=== PATIENT | female | born 1975 | race Hispanic/Latino ===

== ENCOUNTER 2025-08-02 15:33 | Emergency (ER) | payer BC ==
[~2025-08-02] VITALS: Ht 165.1 cm; Wt 66.7 kg
[2025-08-02 16:00] LABS: APPEARANCE,URINE CLOUDY (CLEAR); GLUCOSE, URINE (UA) NEGATIVE (NEGATIVE); LEUKOCYTE ESTERASE ,URINE 75 Leu/uL (NEGATIVE); NITRATE,URINE NEGATIVE (NEGATIVE); OCCULT BLOOD,URINE MODERATE (NEGATIVE)
[2025-08-02 16:01] LABS: HCG,QUALITATIVE URINE NEGATIVE (NEGATIVE)
[2025-08-02 16:05] LABS: ADD UA MICROSCOPIC YES
[2025-08-02 16:07] LABS: SQUAMOUS EPITHELIAL CELL,UR MOD /HPF (0-2)
[2025-08-02 16:47] LABS: IMMATURE GRANULOCYTE ABSOLUTE 0.02 K/uL (0-1); NUCLEATED RED BLOOD CELLS 0.0 % (0.0-0.19); PLATELET COUNT (AUTO) 263 K/uL (130-400); RED BLOOD CELL COUNT(AUTO) 4.28 MIL/uL (4.00-5.50); RED CELL DISTRIBUTION WIDTH 13.2 % (11.0-15.5); WHITE BLOOD COUNT (AUTO) 6.0 K/uL (4.8-10.8)
[2025-08-02 16:55] LABS: CREATININE 0.7 mg/dL (0.5-1.0); GLOMERULAR FILTR. RATE CALC 106.0 mL/min (>90); GLUCOSE,RANDOM 84.0 mg/dL (70-105); SODIUM SERUM 140.0 mmol/L (136-145); UREA NITROGEN, BLOOD 11.0 mg/dL (7-18)
--- NOTE | 2025-08-02 17:32 | NUR ---
CALLED [facility] TO SET UP TRANSPORT FOR PT.
--- NOTE | 2025-08-02 18:21 | ERN ---
General Chief Complaint: Pelvic Pain Stated Complaint: PELVIC PAIN Time Seen by MD: 15:43 Source: patient History of Present Illness Initial Comments 49-year-old female coming in complaining of pelvic pressure pelvic pain. Patient states that she was evaluated at an urgent care was diagnosed with a an ovarian cyst and advised to follow up with her silk trimmer Dr. Morales. Patient states that she was not able to follow up in his here for further evaluation in his complaining of pain again. She states that the pain has not improved. Allergies: Coded Allergies: No Known Allergies (Unverified Allergy, Unknown, 08/02/25) Past Medical History Past Medical History: No Pertinent History Medical History Other: RT OVARIAN CYST Past Surgical History: None ROS Dictation CONSTITUTIONAL: No chills, no fever, no weakness, no diaphoresis, no malaise. HEAD/FACE: No signs of trauma. EENT: No eye pain, no blurred vision, no tearing, no double vision, no ear pain, no ear discharge, no nose pain, no nasal congestion, no throat pain, no throat swelling, no mouth pain. RESPIRATORY: No cough, no orthopnea, no SOB, no stridor, no wheezing. CARDIOVASCULAR: No chest pain, no edema, no palpitations, no syncope. GASTROINTESTINAL/ABDOMINAL: abdominal pain, no constipation, no diarrhea, no nausea, no vomiting. GENITOURINARY: No abnormal discharge, no dysuria, no frequent urination, no hematuria. No complaints of pain in the genitals. MUSCULOSKELETAL: No back pain, no gout, no joint pain, no joint swelling, no muscle pain, no muscle stiffness, no neck pain. INTEGUMENTARY: No change in color, no change in hair/nails, no dryness, no lesion, no lumps, no rash. NEUROLOGICAL/PSYCH: No anxiety, not depressed, no emotional problem, no headache, no numbness, no pre-existing deficit, no history of seizures, no tremors, no weakness. HEMATOLOGIC/LYMPHATIC: Not anemic, no history of blood clots, no apparent bleeding, no bruising, glands not swollen. All Systems Negative, Except as Noted. Physical Exam Physical Exam Dictation VITAL SIGNS: Reviewed. GENERAL APPEARANCE: Alert, oriented x3, no acute distress, obese. HEAD AND FACE: Non-traumatic. EYES: PERRL, pink conjunctivas, eyelid no trauma, anterior chamber clear. EARS: Pinnas intact and no signs of trauma or erythema. Ear canals clear and no discharge. TMs no erythema. NOSE: No discharge, no bleeding. OROPHARYNX: Mouth normal, teeth no caries, tongue pink. Pharynx clear, no erythema. Tonsils no exudates, no abscesses noted. Mucous membrane moist. NECK: Supple, non-tender, no thyromegaly, no masses, no JVD, no bruits. BREAST: Deferred. CHEST: No tenderness, no crepitus, no paradoxical movement, no retractions. LUNGS: Clear, well-ventilated, symmetric, no rales, no wheezing, no rhonchi, no stridor, good breath sounds bilaterally. HEART: Regular rate, regular rhythm, no murmur, no gallops. VASCULAR: No peripheral edema. ABDOMEN: Soft, positive bowel sounds, nondistended, no guarding, suprapubic tender, no rebound, no masses no hepatomegaly, no splenomegaly, no Davalos's sign, no hernias. RECTAL: Deferred. GENITAL: Deferred. NEUROLOGICAL: Normal speech, gross motor function intact, gross sensory function intact. MUSCULOSKELETAL: Neck nontender, full range of motion, back nontender, full range of motion. EXTREMITIES: Nontender, full range of motion. SKIN: Color pink, dry, no turgor, no rash, no lacerations, no abrasions, no contusions. LYMPHATICS: Deferred. Results Laboratory and Microbiology Lab and Micro Result Laboratory Tests Test 08/02/25 15:50 08/02/25 16:39 Urine Color LIGHT-YELLOW (YELLOW) Urine Appearance CLOUDY (CLEAR) H Urine pH 5.5 (5.0-8.0) Urine Specific [place] 1.014 (1.001-1.031) Urine Protein 30 mg/dL (NEGATIVE) H Urine Glucose (UA) NEGATIVE mg/dL (NEGATIVE) Urine Ketones NEGATIVE mg/dL (NEGATIVE) Urine Occult Blood MODERATE (NEGATIVE) H Urine Nitrate NEGATIVE (NEGATIVE) Urine Bilirubin NEGATIVE mg/dL (NEGATIVE) Urine Urobilinogen 0.2 mg/dL (0.2-1.0) Urine Leukocyte Esterase 75 [place]/uL (NEGATIVE) H Urine RBC 11-25 /HPF (0-1) H Urine WBC 11-25 /HPF (0-1) H Urine Squamous Epithelial Cells MOD /HPF (0-2) Urine Bacteria RARE /HPF (None Seen) Urine HCG, Qualitative NEGATIVE (NEGATIVE) White Blood Count 6.0 K/uL (4.8-10.8) Red Blood Count 4.28 MIL/uL (4.00-5.50) Hemoglobin 12.4 g/dL (12.0-16.0) Hematocrit 38.8 % (36-48) Mean Corpuscular Volume 90.7 fL (79-99) Mean Corpuscular Hemoglobin 29.0 pg (27.0-33.0) Mean Corpuscular Hemoglobin Concent 32.0 g/dL (32.0-36.0) Red Cell Distribution Width 13.2 % (11.0-15.5) Platelet Count 263 K/uL (130-400) Mean Platelet Volume 10.3 fL (7.5-10.5) Immature Granulocyte % (Auto) 0.3 % (0-1) Neutrophils (%) (Auto) 68.9 % (40.0-77.0) Lymphocytes (%) (Auto) 21.6 % (21.0-51.0) Monocytes (%) (Auto) 7.2 % (3.0-13.0) Eosinophils (%) (Auto) 1.5 % (0.0-8.0) Basophils (%) (Auto) 0.5 % (0.0-5.0) Neutrophils # (Auto) 4.1 K/uL (1.8-7.7) Lymphocytes # (Auto) 1.3 K/uL (1.0-4.8) Monocytes # (Auto) 0.4 K/uL (0.1-1.0) Eosinophils # (Auto) 0.09 K/uL (0.00-0.70) Basophils # (Auto) 0.03 K/uL (0.00-0.20) Absolute Immature Granulocyte (auto 0.02 K/uL (0-1) Nucleated Red Blood Cells 0.0 % (0.0-0.19) Sodium Level 140 mmol/L (136-145) Potassium Level 4.2 mmol/L (3.5-5.1) Chloride Level 103 mmol/L (101-111) Carbon Dioxide Level 28 mmol/L (21-32) Blood Urea Nitrogen 11 mg/dL (7-18) Creatinine 0.7 mg/dL (0.5-1.0) Glomerular Filtration Rate Calc 106 mL/min (>90) Random Glucose 84 mg/dL (70-105) Total Calcium 9.6 mg/dL (8.5-10.1) Labs Reviewed?: Yes EKG/XRAY/US/CT/MRI Ultrasound Comment Ultrasound pelvis non OB- 5.5 x 7 x 7.3 cm solid mass with a flow neck so right ovary and uterus, fibroid 4.1 x 4.8 x 4.2 MDM MDM: Differential diagnosis: Uterine fibroid, right adnexa mass Rationale: Tests considered and ordered secondary to shared decision making include: Previous outside records reviewed: Old ER visits. Risk of complication and/or morbidity or mortality of patient management: None Medications-Per medication reconciliation Need for hospitalization: Patient does not meet criteria for hospitalization. Need for emergency major/minor surgery: No Patient is a 49-year-old female coming in complaining of suprapubic discomfort. Ultrasound disclose a right adnexal mass as well as a uterine fibroid. Reached out to Dr. Morales patient's silk trimmer per Dr. Morales the findings are more related to a pedunculated fibroid and she is to follow up in their clinic in the a.m.. Orders were placed by Dr. Morales to staff to immediately passed patient to the back. Patient received Toradol 30 mg and her pain improved. Patient will be discharged in stable condition educated on proper follow up. ED Course Orders Procedure Category Date Status Time Cbc With Differential LAB 08/02/25 Complete 15:51 ,Urine Test LAB 08/02/25 Complete 15:51 Urinalysis Profile LAB 08/02/25 Complete 15:51 Us Pelvic Non-Ob Comp US 08/02/25 Resulted 15:51 Basic Metabolic Panel LAB 08/02/25 Complete 15:51 Culture Urine AXEL 08/02/25 In Process 16:05 Ketorolac PHA 08/02/25 Complete Tromethamine 30mg/Ml 17:00 Current Medications Medications (Trade) Dose Ordered Sig/Twan Route PRN Reason Start Time Stop Time Status Last Admin Dose Admin Ketorolac Tromethamine (toRADol) 30 mg ONCE ONCE IVP 08/02/25 17:00 08/02/25 17:01 DC 08/02/25 17:11 Vital Signs Date Time Temp Pulse Resp B/P (MAP) Pulse Ox O2 Delivery O2 Flow Rate FiO2 10/7/25 16:43 61 16 126/80 99 Room Air* 0 21 08/02/25 15:37 98.8 65 20 136/89 95 Room Air 0 DX & DISP Disposition: Discharge Departure Impression: Primary Impression: Uterine fibroid Additional Impression: Adnexal mass Condition: Stable Scripts Naproxen (Naproxen) 500 Mg Tablet 1 TAB PO BID for pain for 7 Days, #14 TAB 0 Refills Prov: FLOWER LANG MD 08/02/25 Additional Instructions: FOLLOW-UP WITH PRIMARY CARE PROVIDER IN 1 TO 2 DAYS. TAKE MEDICATIONS DIRECTED HERE IN THE EMERGENCY ROOM. OKAY TO CONTINUE HOME MEDICATIONS UNLESS OTHERWISE DISCUSSED DURING YOUR VISIT IN THE EMERGENCY ROOM TODAY. RETURN TO YOUR NEAREST EMERGENCY ROOM IF SYMPTOMS WORSEN OR IF THERE IS NO IMPROVEMENT. CALL 911 IF YOU NEED IMMEDIATE ASSISTANCE. TAKE TYLENOL [id number] NEEDED AND IF NO CONTRAINDICATIONS ARE PRESENT. INCREASE ORAL HYDRATION. A WOUND CULTURE OR URINE CULTURE WAS ORDERED HERE IN THE EMERGENCY ROOM DEPARTMENT PLEASE FOLLOW-UP WITH PRIMARY CARE PROVIDER AND ADVISE THEM TO GET REPORTS FROM OUR FACILITY. IF YOU HAD ANY MARIBEL WRAP/SPLINTS THAT WERE APPLIED HERE, PLEASE DO NOT REMOVE THEM UNTIL YOU SEE YOUR PRIMARY CARE OR SPECIALTY. Referrals: Referrals: SELF,REFERRAL (PCP) RUBEN MORALES MD Time of Disposition: 18:35 FLOWER LANG MD Aug 02, 2025 18:21
--- NOTE | 2025-08-02 18:32 | HMCIMG ---
EXAM: US Pelvis, Complete Transabdominal COMPARISON: None provided. CLINICAL HISTORY: Abdominal Pain TECHNIQUE: Transabdominal pelvic ultrasound (complete) with image documentation. FINDINGS: ENDOMETRIUM: Normal thickness???8 mm with some fluid within the endometrial canal. UTERUS/CERVIX: Measures 8.5 x 5.4 x 5.1 cm. The posterior wall fibroid measures 4.1 x 4.8 x 4.2 cm. RIGHT OVARY: Measures 2.4 x 3.19 cm. Normal Doppler flow. A well-defined solid mass with vascularity measuring 5.5 x 7 x 7.3 cm was noted next to the right ovary and uterus. LEFT OVARY: Obscured due to bowel gas. FREE FLUID: No free fluid. IMPRESSION: 1. 5.5 x 7 x 7.3 cm solid, vascularized mass adjacent to right ovary and uterus. Recommend contrast-enhanced MR imaging of the pelvis for further evaluation. 2. 4.1 x 4.8 x 4.2 cm posterior wall uterine fibroid. /Pj
[2025-08-02] MEDS ORDERED: NAPR-1194 PO (18:36)
[2025-08-02] MEDS ORDERED: CEPH500B PO (18:38)
[2025-08-02 18:53] VITALS: BP 116/70; PULSE 59; RESP 16; TEMP 98.8; O2SAT 96
== END 2025-08-02 18:54 | disposition home or self-care (01) ==
LOC: EDH 15:33
DX: R10.9 Unspecified abdominal pain (principal); D25.9 Leiomyoma of uterus, unspecified
CPT/HCPCS: 99284; 96374; 76856; 80048; 85025; 87086; 81001; 81025; 36415; J1885